=== PATIENT | female | born 1945 | race Caucasian/White ===

== ENCOUNTER → 2018-03-15 20:14 | Outpatient (REF) | payer MEDICARE, MEDICAID, SELFPAY ==
[2018-03-15 21:43] LABS: Abs Immature Grans 0.02 k/cumm (0.0-0.09); Absolute Basophil Count 0.04 k/cumm (0.0-0.2); Absolute Eosinophil Count 0.05 k/cumm (0.0-0.7); Absolute Lymphocyte Count 1.34 k/cumm (1.2-3.4); Absolute Monocyte Count 0.58 k/cumm (0.11-0.7); Absolute Neutrophil Count 4.52 k/cumm (1.2-6.7); Basophils % 0.6; Eosinophils % 0.8; HCT 45.9 % (36.0-46.0); HGB 13.7 g/dL (12.0-15.5); Immature Grans % 0.3; Lymphocytes % 20.5; Mean Corp. HGB Concentration 29.8 g/dL (32.0-36.0); Mean Corpuscular Hemoglobin 29.7 pg (27.0-33.0); Mean Corpuscular Volume 99.6 fL (80-95); Mean Platelet Volume 11.5 fL (8.0-11.0); Monocytes % 8.9; Neutrophils % 68.9; Platelet Count 287 x1000/uL (130-400); RBC 4.61 m/cumm (4.00-5.20); RBC Distribution Width 14.4 % (11.7-14.6); White Blood Cell Count 6.55 k/cumm (4.4-10.8)
[2018-03-15 22:24] LABS: Anion Gap 7.7 mmol/L (3-11); BUN 18 mg/dL (7-18); CO2 31.3 mmol/L (21.0-32.0); CREATININE 0.83 mg/dL (0.55-1.02); Calcium 9.1 mg/dL (8.5-10.1); Chloride 108 mmol/L (98-107); Glucose 93 mg/dL (70-100); Potassium 5.1 mmol/L (3.5-5.1); Sodium 147 mmol/L (136-145)
[2018-03-15 22:29] LABS: Folate > 20.0 ng/mL (8.6-20.0); Vitamin B12 > 1000 pg/mL (193-986)
[2018-03-15 23:03] LABS: ESR 23 MM/HR (0-30)
== END ==
LOC: NCHCN 20:14
PROVIDERS: Visit Provider Family Medicine
DX: R51 Headache (principal); D69.6 Thrombocytopenia, unspecified; R63.4 Abnormal weight loss; R53.83 Other fatigue; R07.89 Other chest pain; I25.10 Atherosclerotic heart disease of native coronary artery without angina pectoris
CPT/HCPCS: 80048; 82533; 85652; 82607; 82746; 85025

== ENCOUNTER → 2018-03-26 11:53 | Outpatient (REF) | payer MEDICARE, MEDICAID, SELFPAY ==
[2018-03-26 22:06] LABS: TSH (W/Ref FT4) 0.51 uIU/mL (0.358-3.74)
== END ==
LOC: NCHCN 11:53
PROVIDERS: Visit Provider Family Medicine
DX: R53.83 Other fatigue (principal); R63.4 Abnormal weight loss
CPT/HCPCS: 84443

== ENCOUNTER 2018-05-13 12:02 | Outpatient (REF) | payer MEDICARE, MEDICAID, SELFPAY ==
[2018-05-13 21:43] LABS: Abs Immature Grans 0.01 k/cumm (0.0-0.09); Absolute Basophil Count 0.04 k/cumm (0.0-0.2); Absolute Eosinophil Count 0.14 k/cumm (0.0-0.7); Absolute Lymphocyte Count 0.72 k/cumm (1.2-3.4); Absolute Monocyte Count 0.49 k/cumm (0.11-0.7); Basophils % 0.6; Eosinophils % 2.2; HCT 41.6 % (36.0-46.0); HGB 12.4 g/dL (12.0-15.5); Immature Grans % 0.2; Lymphocytes % 11.1; Mean Corp. HGB Concentration 29.8 g/dL (32.0-36.0); Mean Corpuscular Hemoglobin 29.5 pg (27.0-33.0); Mean Corpuscular Volume 98.8 fL (80-95); Mean Platelet Volume 11.8 fL (8.0-11.0); Monocytes % 7.5; Neutrophils % 78.4; Platelet Count 221 x1000/uL (130-400); RBC 4.21 m/cumm (4.00-5.20); RBC Distribution Width 14.5 % (11.7-14.6)
[2018-05-13 21:56] LABS: ALT 22 U/L (12-78); AST 20 U/L (15-37); Albumin 2.3 g/dL (3.4-5.0); Alkaline Phosphatase 128 U/L (46-116); Anion Gap 11.6 mmol/L (3-11); BUN 18 mg/dL (7-18); Bilirubin, Total 0.4 mg/dL (0.2-1.0); CO2 28.4 mmol/L (21.0-32.0); CREATININE 0.69 mg/dL (0.55-1.02); Calcium 8.5 mg/dL (8.5-10.1); Chloride 103 mmol/L (98-107); Glucose 80 mg/dL (70-100); Potassium 4.4 mmol/L (3.5-5.1); Sodium 143 mmol/L (136-145)
== END 2018-05-13 12:22 ==
LOC: NCHCN 12:02
PROVIDERS: Visit Provider Nurse Practitioner Family
DX: R53.83 Other fatigue (principal); R05 Cough
CPT/HCPCS: 80053; 85025

== ENCOUNTER 2019-01-28 21:14 | Outpatient (REF) | payer MEDICARE, MEDICAID, SELFPAY ==
[2019-01-28 21:57] LABS: Abs Immature Grans 0.01 k/cumm (0.0-0.09); Absolute Basophil Count 0.04 k/cumm (0.0-0.2); Absolute Eosinophil Count 0.16 k/cumm (0.0-0.7); Absolute Lymphocyte Count 1.09 k/cumm (1.2-3.4); Absolute Monocyte Count 0.48 k/cumm (0.11-0.7); Absolute Neutrophil Count 5.77 k/cumm (1.2-6.7); Basophils % 0.5; Eosinophils % 2.1; HCT 41.4 % (36.0-46.0); HGB 12.3 g/dL (12.0-15.5); Immature Grans % 0.1; Lymphocytes % 14.4; Mean Corp. HGB Concentration 29.7 g/dL (32.0-36.0); Mean Platelet Volume 11.4 fL (8.0-11.0); Monocytes % 6.4; Neutrophils % 76.5; Platelet Count 176 x1000/uL (130-400); RBC 4.55 m/cumm (4.00-5.20); RBC Distribution Width 17.7 % (11.7-14.6); White Blood Cell Count 7.55 k/cumm (4.4-10.8)
[2019-01-28 22:00] LABS: Iron 76 ug/dL (50-175); Total Iron Binding Capacity 299 ug/dL (250-450); Transferrin Sat 25 % (15-50)
== END 2019-01-28 21:34 ==
LOC: NCHCN 21:14
PROVIDERS: Visit Provider Family Medicine
DX: D50.9 Iron deficiency anemia, unspecified (principal)
CPT/HCPCS: 83540; 83550; 85025

== ENCOUNTER 2019-04-07 12:24 | Outpatient (REF) | payer MEDICARE, MEDICAID, SELFPAY ==
[2019-04-07 21:18] LABS: Bilirubin Negative (Negative); Blood Moderate (Negative); Clarity Cloudy (Clear); Glucose Negative (Negative); Ketones Negative (Negative); Leukocyte Esterase Moderate (Negative); Nitrite Negative (Negative); Urobilinogen 0.2 EU/dL (Up TO 0.2); pH 5.5 (5-8)
[2019-04-07 21:35] LABS: C & S Indicated? Yes; WBC >50 HPF (0-5)
== END 2019-04-07 12:44 ==
LOC: NCHCN 12:24
PROVIDERS: Visit Provider Family Medicine
DX: R30.0 Dysuria (principal)
CPT/HCPCS: 81003; 81015; 87086

== ENCOUNTER 2019-04-11 20:16 | Outpatient (REF) | payer MEDICARE, MEDICAID, SELFPAY ==
[2019-04-11 21:05] LABS: Bilirubin Negative (Negative); Blood Moderate (Negative); Clarity Cloudy (Clear); Glucose Negative (Negative); Ketones Trace mg/dL (Negative); Leukocyte Esterase Moderate (Negative); Nitrite Negative (Negative); Specific Gravity 1.025 (1.005-1.025)
[2019-04-11 21:20] LABS: WBC >50 HPF (0-5)
[2019-04-11 21:22] LABS: C & S Indicated? Yes
== END 2019-04-11 20:36 ==
LOC: NCHCN 20:16
PROVIDERS: Visit Provider Family Medicine
DX: R30.0 Dysuria (principal); R32 Unspecified urinary incontinence; R35.0 Frequency of micturition
CPT/HCPCS: 87077; 81003; 81015; 87086; 87186

== ENCOUNTER 2019-04-24 20:41 | Outpatient (REF) | payer MEDICARE, MEDICAID, SELFPAY | END 2019-04-24 21:01 | LOC: NCHCN 20:41 | PROVIDERS: Visit Provider Family Medicine | DX: R30.0 Dysuria (principal); R35.0 Frequency of micturition | CPT/HCPCS: 87077; 87086; 87186 ==

== ENCOUNTER 2019-06-04 22:04 | Outpatient (REF) | payer MEDICARE, MEDICAID, SELFPAY | END 2019-06-04 22:24 | LOC: NCHCN 22:04 | PROVIDERS: Visit Provider Family Medicine | DX: Z87.448 Personal history of other diseases of urinary system (principal); N39.0 Urinary tract infection, site not specified | CPT/HCPCS: 87077; 87086; 87186 ==

== ENCOUNTER 2019-07-09 09:55 | Outpatient (REF) | payer MEDICARE, MEDICAID, SELFPAY | END 2019-07-09 10:15 | LOC: NCHCN 09:55 | PROVIDERS: Visit Provider Family Medicine | DX: R30.0 Dysuria (principal) | CPT/HCPCS: 87077; 87086; 87186 ==

== ENCOUNTER 2019-12-10 20:09 | Outpatient (REF) | payer MEDICARE, MEDICAID, SELFPAY ==
[2019-12-10 20:58] LABS: Anion Gap 4.2 mmol/L (3-11); BUN 18 mg/dL (7-18); CO2 29.8 mmol/L (21.0-32.0); CREATININE 0.81 mg/dL (0.55-1.02); Calcium 7.8 mg/dL (8.5-10.1); Chloride 103 mmol/L (98-107); Glucose 88 mg/dL (74-106); NT-proBNP 440 pg/mL (<300); Sodium 137 mmol/L (136-145)
== END 2019-12-10 20:29 ==
LOC: LBN 20:09
DX: R07.9 Chest pain, unspecified (principal); I25.110 Atherosclerotic heart disease of native coronary artery with unstable angina pectoris; I11.9 Hypertensive heart disease without heart failure
CPT/HCPCS: 80048; 83880